=== PATIENT | female | born 1990 | race Asian ===

== ENCOUNTER 2018-01-06 09:48 | Day surgery (SDC) | END 2018-01-06 18:30 | disposition home or self-care (01) ==

== ENCOUNTER 2018-07-07 09:55 | Day surgery (SDC) | payer OTHER ==
[~2018-07-07] VITALS: Ht 165.1 cm; Wt 65.4 kg
[2018-07-07] VITALS (15 sets, daily range): BP systolic 105–145; BP diastolic 52–91; PULSE 79–98; RESP 12–18; Ht 165.1 cm; Wt 65.4 kg
[2018-07-07] MEDS ORDERED: SPIR100T4 PO (10:51)
[2018-07-07] MEDS ORDERED: BUPIVACAINE 0.25%/EPI (SDV) 30 ML INJ ONE (15:36)
[2018-07-07] MEDS ORDERED: POLYMYXIN/BACITRACIN 1L IRRIG ONE (15:37)
[2018-07-07] MEDS ORDERED: GENTAMICIN 80 MG INJ ONE (15:37)
--- NOTE | 2018-07-07 15:41 | HPN ---
Date/Time of Note Date/Time of Note DATE: 07/07/18 TIME: 15:41 Interval H&P Admission Note Pt. seen H&P reviewed: No system changes RACHEL DYER MD Jul 07, 2018 15:41
--- NOTE | 2018-07-07 15:43 | PREAC ---
Date/Time of Note Date/Time of Note DATE: 07/07/18 TIME: 15:39 Anesthesia Eval and Record Evaluation Time Pre-Procedure Interview DATE: 07/07/18 TIME: 15:39 Age 28 Sex female NPO: 8 hrs Preoperative diagnosis disproportional breast reconstruction Planned procedure right breast revision and implant replacement Past Medical History Past Medical History: Includes (transgender) Surgery & Anesthesia Issues No known issue Meds Anticoagulation: No Beta Emily within 24 hr: No Reason Beta Emily not given: Pt. not on B-Emily Reported Medications Spironolactone* (Spironolactone*) 100 Mg Tablet, 100 MG PO DAILY, TAB 07/07/18 Meds reviewed: Yes Allergies Coded Allergies: No Known Allergy (Unverified , 07/07/18) Allergies Reviewed: Yes Labs/Studies Labs Reviewed: Reviewed by anesthesiologist test: N/A Pre-procedure Exam Last vitals Vital Signs Date Temp Pulse Resp B/P (MAP) Pulse Ox O2 O2 Flow FiO2 Time Delivery Rate 07/07/18 97.9 79 16 105/52 100 Room Air 11:06 (69) Airway: Adequate mouth opening, Adequate thyromental dist Mallampati: Mallampati II Teeth: Normal Lung: Normal Heart: Normal ASA Physical Status ASA physical status: 1 Emergency: None Planned Anesthetic General/MAC: LMA Planned Pain Management Parenteral pain med Pre-operative Attestations Prior to commencing anesthesia and surgery, the patient was re-evaluated, there was verification of: *The patient's identity *The results of appropriate recent lab work and preoperative vital signs *The above evaluation not changing prior to induction *Anesthetic plan, risk benefits, alternative and complications discussed with patient/family; questions answered; patient/family understands, accepts and wishes to proceed. ATA OBRIEN MD Jul 07, 2018 15:42
[2018-07-07] MEDS ORDERED: LIDOCAINE 2% (SDV) 5 ML INJ ONE (15:58)
[2018-07-07] MEDS ORDERED: PROPOFOL 20 ML ONE ×2 (15:58→16:07)
[2018-07-07] MEDS ORDERED: MIDAZOLAM 1 MG/ML 2 ML INJ ONE (15:58)
[2018-07-07] MEDS ORDERED: PROCHLORPERAZINE 10 MG INJ IV PRN (16:00)
[2018-07-07] MEDS ORDERED: OXYCODONE/ACETAMINOPHEN (5/325) TAB PO PRN (16:00)
[2018-07-07] MEDS ORDERED: ONDANSETRON 4 MG INJ IV PRN ×2 (16:00→17:30)
[2018-07-07] MEDS ORDERED: FENTAnyl 50 MCG/ML VIAL IV PRN ×3 (16:00)
[2018-07-07] MEDS ORDERED: DIPHENHYDRAMINE 50 MG INJ IV PRN (16:00)
[2018-07-07] MEDS ORDERED: HYDROmorphONE 1 MG/5 ML IV SYRINGE IV PRN ×3 (16:00)
[2018-07-07] MEDS ORDERED: MEPERIDINE 25 MG INJ IV PRN (16:00)
[2018-07-07] MEDS ORDERED: ONDANSETRON 4 MG INJ ONE (16:07)
[2018-07-07] MEDS ORDERED: DEXAMETHASONE 4 MG/ML 5 ML INJ ONE (16:07)
[2018-07-07] MEDS ORDERED: CEFAZOLIN 1 GM INJ ONE (16:07)
[2018-07-07] MEDS ORDERED: FENTAnyl 50 MCG/ML VIAL ONE (16:10)
[2018-07-07] MEDS ORDERED: HYDROmorphONE 2 MG/ML SYG ONE ×2 (16:44→16:45)
--- NOTE | 2018-07-07 17:23 | OPR ---
Date/Time of Note Date/Time of Note DATE: 07/07/18 TIME: 17:17 Operative Report Free Text/Dictation Plastic Surgery Operative Report Preoperative diagnosis: gender dysphoria, disporportion of reconstructed breast Postoperative diagnosis:same Procedure: Right breast implant removal, revision, and replacement Surgeon: Lilliana Langston.: MOISES Kohler Anesthesia: General EBL: Minimal IV fluids: Per anesthesia flow sheet Findings: Thin benign-appearing capsule Complications: None Dispo: Home Indications for procedure: 28-year-old transgender male to female patient presents with disproportion of her right breast after a breast reconstruction procedure. The implant is sitting higher on the right than the left. We will lower the implant and replace it today. The risks, benefits, alternatives of performing this procedure were discussed with the patient including risks of bleeding, infection, wound healing problems, asymmetry, as well as implant related complications such as deflation, rotation, capsular contracture, and the patient states that she understands these risks and would like to proceed with the procedure. All questions were answered and no guarantees were given with regards to the outcome of this procedure. Description of procedure: The patient was brought to the operating room at [facility] where general anesthesia was induced and she was prepped and draped in usual sterile fashion. 5 cc of 0.25% Marcaine with 1: 200,000 epinephrine were injected into the planned incision site in the lower border of the areola. Next, incision was made with the 10 blade and electrocautery was used to dissect down to the previous breast implant capsule. The capsule was opened and the implant was removed. The capsule was inspected. It was thin and benign in appearance. It did not appear thickened or calcified or contracted. Therefore, attention turned to the lower portion of the breast. Electrocautery was then used to release the inferior portion of the capsule and dissect along the chest wall to lower the inframammary fold to the same position of the contralateral side. Next, multiple scoring capsulotomies were used in a radial pattern to help release the capsule along with the thick, glandular breast tissue. This significantly expanded lower pole of the breast. A 450 cc high-profile sizer was then opened, rinsed in antibiotic irrigation and was inserted into the right breast with the Johns funnel. The patient was sat up o n the operating table. The breasts appeared symmetric. Therefore she was sat back down. The implant was removed. Multiple rounds of antibiotic irrigation and hemostasis were carried out. Next, Betadine was placed into the breast and was allowed to sit for 5 minutes. Gloves and instruments were then changed. A Natrelle SRF 450cc breast implant was opened, rinsed in antibiotic irrigation, and was inserted into the right breast with minimal touch technique. The breasts were inspected and appeared symmetric. Therefore the incision was closed with a deep layer of 2-0 Vicryl suture followed by 3-0 Vicryl suture and 4-0 Monocryl suture. The patient tolerated procedure well, there were no complications, follow-up information and wound care instructions were given. MOISES Kohler assisted with this procedure. Preoperative Diagnosis gender dysphoria, disporportion of reconstructed breast Postoperative Diagnosis gender dysphoria, disporportion of reconstructed breast Operation/Procedure Performed right breast revision with implant exchange Surgeon see signature line Edge Setter MOISES kohler Anesthesia Type: general Estimated Blood Loss: minimal Transfusion none Specimen none Grafts/Implants right breast implant Complications none Pt Condition Post Procedure: stable Procedure Description see dictation RACHEL DYER MD Jul 07, 2018 17:23
[2018-07-07] MEDS ORDERED: ACETAMINOPHEN 325 MG TAB PO PRN (17:30)
[2018-07-07] MEDS ORDERED: morphine 2 MG INJ IV PRN (17:30)
[2018-07-07] MEDS ORDERED: HYDROCODONE/APAP (5/325) TAB PO PRN (17:30)
--- NOTE | 2018-07-07 17:34 | PAC ---
Date/Time of Note Date/Time of Note DATE: 07/07/18 TIME: 17:31 Post-Anesthesia Notes Post-Anesthesia Note Last documented vital signs Vital Signs Date Temp Pulse Resp B/P (MAP) Pulse Ox O2 O2 Flow FiO2 Time Delivery Rate 07/07/18 97.9 79 16 105/52 100 Room Air 11:06 (69) Activity: WNL Respiratory function: WNL Cardiovascular function: WNL Mental status: Baseline Pain reasonably controlled: Yes Hydration appropriate: Yes Nausea/Vomiting absent: Yes Comments BP: 134/76 HR: 98 RR: 15 T: 98 SaO2: 99% ATA GARCIA MD Jul 07, 2018 17:34
== END 2018-07-07 19:33 | disposition home or self-care (01) ==
LOC: SDS 09:55
PROVIDERS: ATTEND Surgery Plastic and Reconstructive Surgery
DX: N65.1 Disproportion of reconstructed breast (principal); F64.9 Gender identity disorder, unspecified
CPT/HCPCS: 19380; C1789; J0690; J0780; J1100; J1170; J1580; J2250; J2405; J3010; Z7512; Z7610